=== PATIENT | male | born 1945 | race Caucasian/White ===

== ENCOUNTER 2017-10-25 09:35 | Day surgery (SDC) | payer MEDICARE, BC ==
[~2017-10-25 09:35] MED LIST: Lactated Ringers 1,000 ML IV SCH
--- NOTE | 2017-10-25 10:53 | PCM.PREANE ---
Preanesthetic Assessment - Anesthesia/Transfusion/Family Hx Anesthesia History: Prior Anesthesia Without Reaction Family History of Anesthesia Reaction: No Transfusion History: No Prior Transfusion(s) Intubation History: Unknown - Review of Systems General: No Symptoms Pulmonary: No Symptoms Cardiovascular: No Symptoms Gastrointestinal: Constipation Neurological: No Symptoms Other: Reports: None - Physical Assessment O2 Sat by Pulse Oximetry: 96 Respiratory Rate: 16 Vital Signs: Last Vital Signs Temp 36.7 C 10/25/17 09:52 Pulse 45 L 10/25/17 09:52 Resp 16 10/25/17 09:52 BP 120/76 10/25/17 09:52 Pulse Ox 96 10/25/17 09:52 Height: 1.83 m Weight: 85.275 kg ASA Class: 1 Mental Status: Alert & Oriented x3 Airway Class: Mallampati = 2 Dentition: Reports: Normal Dentition Thyro-Mental Finger Breadths: 3 Mouth Opening Finger Breadths: 2 ROM/Head Extension: Full Lungs: Clear to Auscultation, Normal Respiratory Effort Cardiovascular: Regular Rate, Regular Rhythm - Allergies Allergies/Adverse Reactions: Allergies Allergy/AdvReac Type Severity Reaction Status Date / Time No Known Allergies Allergy Verified 10/21/17 10:00 - Blood Blood Available: No - Anesthesia Plan Pre-Op Medication Ordered: None - Acknowledgements Anesthesia Type Planned: MAC Pt an Appropriate Candidate for the Planned Anesthesia: Yes Alternatives and Risks of Anesthesia Discussed w Pt/Guardian: Yes Pt/Guardian Understands and Agrees with Anesthesia Plan: Yes PreAnesthesia Questionnaire - Past Health History Medical/Surgical History: Denies Medical/Surgical History Dermatologic History: Reports: Other (See Below) Other Dermatologic History: "bumps on my left leg for the last 6 months" - Past Surgical History Head Surgeries/Procedures: Reports: None Musculoskeletal Surgical History: Reports: Other (See Below) Other Musculoskeletal Surgeries/Procedures:: left knee fx repair in high school - SUBSTANCE USE Smoking Status *Q: Never Smoker Recreational Drug Use History: No - HOME MEDS Home Medications: Home Meds Multivitamin [Multivitamins] 1 tab PO DAILY 10/21/17 [History] - CURRENT (IN HOUSE) MEDS Current Meds: Current Medications Lactated Ringer's (Ringers, Lactated) 1,000 mls @ 125 mls/hr IV ASDIRECTED [facility] Last Admin: 01/08/18 09:59 Dose: 125 mls/hr
[2017-10-25] MEDS ORDERED: Propofol 200 MG/20 ML SDV ONE (11:47)
[2017-10-25] MEDS ORDERED: Lidocaine 2% 5 ML SDV ONE ×2 (11:57)
--- NOTE | 2017-10-25 12:27 | PCM.OPNOTE ---
- General Post-Op/Procedure Note Date of Surgery/Procedure: 10/25/17 Operative Procedure(s): Colonoscopy Pre Op Diagnosis: Change in bowel habits. Post-Op Diagnosis: Sigmoid diverticulosis. Internal hemorrhoids. Anesthesia Technique: MAC (ASA I) Primary Surgeon: Donaldo Palmer Condition: Good Free Text/Narrative:: Dictation [id number] CPT CODE 14282
[2017-10-25] MEDS ORDERED: Lactated Ringers 1,000 ML IV SCH (12:30)
--- NOTE | 2017-10-25 12:35 | PCM.POSTAN ---
POST ANESTHESIA ASSESSMENT - MENTAL STATUS Mental Status: Alert, Oriented - RESPIRATORY Respiratory Status: Respiratory Rate WNL, Airway Patent, O2 Saturation Stable - CARDIOVASCULAR CV Status: Pulse Rate WNL - GASTROINTESTINAL GI Status: No Symptoms - PAIN Pain Score: 0 - POST OP HYDRATION Hydration Status: Adequate & Stable - OBSERVATIONS Free Text/Narrative:: no anesthesia problems
--- NOTE | 2017-10-25 19:07 | OR ---
SURGEON: Donaldo Palmer M.D. DATE OF PROCEDURE: 10/25/2017 OPERATION PERFORMED: Colonoscopy. ANESTHESIA: MAC. ASA CLASSIFICATION: I. PREOPERATIVE DIAGNOSIS: Change in bowel habits. POSTOPERATIVE DIAGNOSES: 1. Sigmoid diverticulosis. 2. The patient does have some mild internal hemorrhoids. DESCRIPTION OF PROCEDURE: The patient was taken to the endoscopy room and positioned on the endoscopy table in the left lateral decubitus position. Time-out was called for appropriate identification of the patient and procedure. Monitored anesthesia care was provided. The colonoscope was inserted into the rectum and advanced without difficulty to the cecum, where the colonoscope was retroflexed to visualize the ascending colon from below. The colonoscope was then straightened and slowly withdrawn. The cecum, ascending colon, hepatic flexure, transverse colon, splenic flexure, and descending colon showed no tumors, polyps, diverticula, or angiodysplastic changes. There was no evidence of inflammatory bowel disease. Sigmoid colon demonstrates scattered diverticular changes. No stricture, spasm, or bleeding was noted. No polyps were encountered. The colonoscope was withdrawn to the rectum and retroflexed to visualize the anal orifice from above. The patient does have some mild internal hemorrhoids. No acute bleeding was noted. The colonoscope was then straightened, the rectum aspirated, and the colonoscope removed. The patient tolerated the procedure well and was taken to recovery room in stable condition. SHELLIE ALEGRIA /[id number]
== END 2017-10-25 12:57 | disposition home or self-care (01) ==
LOC: MW.SDS 09:35
PROVIDERS: ATTEND Surgery
DX: K57.30 Diverticulosis of large intestine without perforation or abscess without bleeding (principal); K64.8 Other hemorrhoids
CPT/HCPCS: 45378; J7120; J2704

== ENCOUNTER 2017-12-03 10:21 | Emergency (ER) | payer MEDICARE, BC, OTHER ==
--- NOTE | 2017-12-03 10:32 | EDM.PDOC ---
ED HPI GENERAL MEDICAL PROBLEM - General Stated Complaint: FALL(RT SHOULDER HURTS) Time Seen by Provider: 12/03/17 10:23 Source of Information: Reports: Patient History Limitations: Reports: No Limitations - History of Present Illness INITIAL COMMENTS - FREE TEXT/NARRATIVE: HISTORY AND PHYSICAL: History of present illness: Patient is a 72-year-old male who presents to the emergency room today with complaints of right shoulder pain after falling and slipping on the ice. After standing he states he was unable to move his right shoulder without pain. Denies any numbness or tingling to the affected extremity. He denies hitting his head or any loss of consciousness. He does not take any blood thinners or aspirin's. Denies any previous injury, dislocation or surgeries to the affected extremity. Review of systems: As per history of present illness and below otherwise all systems reviewed and negative. Past medical history: As per history of present illness and as reviewed below otherwise noncontributory. Surgical history: As per history of present illness and as reviewed below otherwise noncontributory. Social history: No reported history of drug or alcohol abuse. Family history: As per history of present illness and as reviewed below otherwise noncontributory. Physical exam: General: Developed and well nourished 72-year-old male. Alert and oriented. Nontoxic appearing and in no acute distress. HEENT: Atraumatic, normocephalic, pupils reactive, negative for conjunctival pallor or scleral icterus, mucous membranes moist, throat clear, neck supple, nontender, trachea midline. Lungs: Clear to auscultation, breath sounds equal bilaterally, chest nontender. Heart: S1S2, regular rate and rhythm Abdomen: Soft, nondistended, nontender. Negative for masses or hepatosplenomegaly. Negative for costovertebral tenderness. Pelvis: Stable nontender. Genitourinary: Deferred. Rectal: Deferred. Extremities: Limited ROM of right shoulder, pain when moving her arm away from the body at 20. Strong radial pulses bilaterally. Capillary refill less than 3 seconds. No pain when palpating the distal numerous, elbow, forearm, wrist or hand. No clavicular or scapular pain or tenderness. Neurovascular unremarkable. C-Spine/Back: No pinpoint vertebral tenderness upon palpation. No crepitus, step -offs or obvious deformities. Skin: Intact, warm, dry. Neuro: Awake, alert, oriented. Cranial nerves II through XII unremarkable. Cerebellum unremarkable. Motor and sensory unremarkable throughout. Exam nonfocal. Patient drove himself to the emergency room today and does not have a ride. Did offer to give him Toradol which he declined at this time. Did give ice to the area. Awaiting x-rays. X-ray shows a nondisplaced proximal right humeral metaphysis fracture. Will place patient in a shoulder immobilizer and educated on the importance of immediate fourth of follow-up. He voices understanding and will call today for follow-up appointment. Will prescribe patient Barryton 5/325mg, dispense 15, no refill. Patient states he does not use pain medications. Encouraged him to use Barryton for nighttime use if he is having moderate to severe pain. Otherwise he may use Tylenol and/or ibuprofen as desired. He voices understanding and is agreeable to plan of care. He denies any further questions at this time. Diagnostics: X-ray right shoulder, humerus Therapeutics: Shoulder immobilizer Orthopedic referral Ice Impression: Right humerus fracture, nondisplaced Plan: 1. Please wear the shoulder immobilizer on at all times. Rest and ice the area intermittently throughout the day. 2. Please use Tylenol and/or ibuprofen as needed for pain management. He will have been given Barryton for moderate to severe pain. This medication is a narcotic and will cause drowsiness, so do not take when driving or needing to be functioning outside of the house. 3. As we discussed, please create a follow-up appointment with the orthopedic provider for early next week. Phone number and referral has been given to you. Return to the ED as needed and as discussed. Definitive disposition and diagnosis as appropriate pending reevaluation and review of above. Onset: Today Right Shoulder Pain Score (Numeric/FACES): 9 - Related Data Allergies Allergy/AdvReac Type Severity Reaction Status Date / Time No Known Allergies Allergy Verified 10/21/17 10:00 Home Meds: Home Meds Multivitamin [Multivitamins] 1 tab PO DAILY 10/21/17 [History] Past Medical History - Past Health History Medical/Surgical History: Denies Medical/Surgical History Dermatologic History: Reports: Other (See Below) Other Dermatologic History: "bumps on my left leg for the last 6 months" - Past Surgical History Head Surgeries/Procedures: Reports: None Musculoskeletal Surgical History: Reports: Other (See Below) Other Musculoskeletal Surgeries/Procedures:: left knee fx repair in high school Social & Family History - Tobacco Use Smoking Status *Q: Never Smoker - Recreational Drug Use Recreational Drug Use: No Review of Systems - Review of Systems Review Of Systems: ROS reveals no pertinent complaints other than HPI. ED EXAM, GENERAL - Physical Exam Exam: See Below (See dictation) Course - Vital Signs Last Recorded V/S: Last Vital Signs Temp 98.0 F 12/03/17 10:51 Pulse 46 L 12/03/17 10:51 Resp 18 12/03/17 10:51 BP 125/71 12/03/17 10:51 Pulse Ox 99 12/03/17 10:51 - Orders/Labs/Meds Orders: Active Orders 24 hr Category Date Time Status Communication Order [RC] STAT Care 12/03/17 11:46 Active DME for Discharge [COMM] Stat Oth 12/03/17 11:46 Ordered Departure - Departure Time of Disposition: 11:54 Disposition: Home, Self-Care 01 Clinical Impression: Humerus fracture Qualifiers: Encounter type: initial encounter Humerus Location: proximal Fracture type: closed Fracture morphology: other fracture Fracture alignment: nondisplaced Laterality: right Qualified Code(s): S42.294A - Other nondisplaced fracture of upper end of right humerus, initial encounter for closed fracture - Discharge Information Referrals: PCP,None [Primary Care Provider] - Additional Instructions: My general discharge The following information is given to patients seen in the emergency department who are being discharged to home. This information is to outline your options for follow-up care. We provide all patients seen in our emergency department with a follow-up referral. The need for follow-up, as well as the timing and circumstances, are variable depending upon the specifics of your emergency department visit. If you don't have a primary care physician on staff, we will provide you with a referral. We always advise you to contact your personal physician following an emergency department visit to inform them of the circumstance of the visit and for follow-up with them and/or the need for any referrals to a consulting specialist. The emergency department will also refer you to a specialist when appropriate. This referral assures that you have the opportunity for follow-up care with a specialist. All of these measure are taken in an effort to provide you with optimal care, which includes your follow-up. Under all circumstances we always encourage you to contact your private physician who remains a resource for coordinating your care. When calling for follow-up care, please make the office aware that this follow-up is from your recent emergency room visit. If for any reason you are refused follow-up, please contact the [facility] Emergency Department at and asked to speak to the emergency department charge nurse. [facility] Professional Building [address] [place] [address], [address] [place] [address] 1. Please wear the shoulder immobilizer on at all times. Rest and ice the area intermittently throughout the day. 2. Please use Tylenol and/or ibuprofen as needed for pain management. He will have been given Barryton for moderate to severe pain. This medication is a narcotic and will cause drowsiness, so do not take when driving or needing to be functioning outside of the house. 3. As we discussed, please create a follow-up appointment with the orthopedic provider for early next week. Phone number and referral has been given to you. Return to the ED as needed and as discussed. - My Orders Last 24 Hours: My Active Orders 12/03/17 11:46 Communication Order [RC] STAT DME for Discharge [COMM] Stat - Assessment/Plan Last 24 Hours: My Active Orders 12/03/17 11:46 Communication Order [RC] STAT DME for Discharge [COMM] Stat
--- NOTE | 2017-12-03 11:53 | CR ---
EXAMINATION: Right shoulder and right humerus HISTORY: Pain COMPARISON: None TECHNIQUE: 2 views of the right humerus and 3 views of the right shoulder FINDINGS: There is oblique nondisplaced minimally angulated fracture the proximal right humeral metap hysis. 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 Remaining osseous structures appear preserved. Bone mineralization is otherwise normal. IMPRESSION: 1. Nondisplaced proximal right humeral metaphysis fracture.
== END 2017-12-03 12:12 | disposition home or self-care (01) ==
LOC: MW.ED 10:21
DX: S42.294A Other nondisplaced fracture of upper end of right humerus, initial encounter for closed fracture (principal); W00.0XXA Fall on same level due to ice and snow, initial encounter
CPT/HCPCS: 73030-26-RT; 73030-RT; 73060-26-RT; 73060-RT; 99283; 99284